=== PATIENT | female | born 1950 | race Caucasian/White ===

== ENCOUNTER 2017-07-03 10:31 | Outpatient (CLI) | payer OTHER ==
[~2017-07-03 10:31] MED LIST: LAMICTAL200 M1; TRICOR145 MG
== END 2017-07-03 10:36 | disposition home or self-care (01) ==
LOC: NUCLEAR 10:31
DX: R59.0 Localized enlarged lymph nodes (principal)
CPT/HCPCS: 78815; A9552

== ENCOUNTER 2017-12-03 07:35 | Outpatient (CLI) | payer OTHER ==
[~2017-12-03 07:35] MED LIST changes: +CRESTOR20 MG; +DICLOFENAC SODI50 MG PO; +NORFLEX100MG PO
== END 2017-12-03 07:40 | disposition home or self-care (01) ==
LOC: MRI 07:35
DX: M25.561 Pain in right knee (principal)
CPT/HCPCS: 73721

== ENCOUNTER → 2018-01-13 | Outpatient (CLI) | payer OTHER | END | disposition home or self-care (01) | LOC: EKG 10:11 | DX: D68.8 Other specified coagulation defects (principal); E78.2 Mixed hyperlipidemia; N39.0 Urinary tract infection, site not specified; R07.89 Other chest pain; I10 Essential (primary) hypertension; Z01.818 Encounter for other preprocedural examination ==

== ENCOUNTER 2018-07-14 08:44 | Outpatient (CLI) | payer OTHER | END 2018-07-14 08:50 | disposition home or self-care (01) | LOC: RAD 08:44 | DX: R07.89 Other chest pain (principal) ==

== ENCOUNTER 2018-07-14 09:31 | Outpatient (CLI) | payer OTHER | END 2018-07-14 10:13 | disposition home or self-care (01) | LOC: EKG 09:31 | DX: I10 Essential (primary) hypertension (principal) ==

== ENCOUNTER 2018-08-17 09:51 | Outpatient (CLI) | payer OTHER | END 2018-08-17 09:58 | disposition home or self-care (01) | LOC: TOM 09:51 | DX: R91.1 Solitary pulmonary nodule (principal) ==

== ENCOUNTER → 2020-01-27 08:08 | Outpatient (CLI) | payer OTHER | END | disposition home or self-care (01) | LOC: LAB 08:08 | PROVIDERS: ATTEND Internal Medicine Geriatric Medicine | DX: D50.8 Other iron deficiency anemias (principal); E03.8 Other specified hypothyroidism; E78.2 Mixed hyperlipidemia; I11.9 Hypertensive heart disease without heart failure; E56.8 Deficiency of other vitamins; N39.0 Urinary tract infection, site not specified; Z12.11 Encounter for screening for malignant neoplasm of colon; E55.9 Vitamin D deficiency, unspecified; N19 Unspecified kidney failure; E11.9 Type 2 diabetes mellitus without complications; R80.8 Other proteinuria; C18.0 Malignant neoplasm of cecum; K92.1 Melena; R06.02 Shortness of breath ==

== ENCOUNTER 2023-10-30 16:33 | Emergency (ER) | payer OTHER ==
[~2023-10-30] VITALS: Ht 162.6 cm; Wt 69.9 kg
[2023-10-30] MEDS ORDERED: OFEV150 MG PO (18:40)
[2023-10-30] MEDS ORDERED: LOSARTAN POTASS50 MG PO (18:41)
[2023-10-30] MEDS ORDERED: FAMOTIDINE/PF 20 MG/2 ML VIAL IV ONE (21:30)
[2023-10-30] MEDS ORDERED: LACTOBACILLUS ACIDOPHILUS 1 CAP CAP PO ONE (21:30)
[2023-10-30] MEDS ORDERED: ACETAMINOPHEN 500 MG GEL..CAP PO ONE (21:30)
[2023-10-30] MEDS ORDERED: 0.9 % SODIUM CHLORIDE 500 ML IV ONE (21:30)
[2023-10-30 21:42] LABS: HEMATOCRIT 41.2 % (36.0-45.00); MEAN CELL VOLUME 89.1 fL (80.00-100.00); MEAN CORPUSCULAR HEMOGLOBIN 30.3 pg (27.00-32.0); PLATELET COUNT 283 K/uL (150-450); RED BLOOD COUNT 4.62 M/uL (4.00-6.00); RED CELL DISTRIBUTION WIDTH 14.8 % (11.5-14.5)
[2023-10-30 22:06] LABS: ALBUMIN 4.1 gm/dL (3.4-5.0); BILIRUBIN TOTAL 0.33 mg/dL (0.3-1.2); CALCIUM 10.1 mg/dL (8.5-10.1); CREATININE SERUM 1.05 mg/dL (0.55-1.02); GFR 51.23; GLOBULINA 4.4 G/DL (2.4-3.5); POTASSIUM 4.52 mEq/L (3.5-5.1); TOTAL PROTEIN 8.5 gm/dL (6.4-8.2)
[2023-10-31 01:35] LABS: URINE EPITHELIAL CELLS 23.8 uL (0.0-38.8); URINE RBC 100.9 uL (0.0-20.8)
[2023-10-31 02:09] LABS: URINE BACTERIA 1.2 uL (0.0-1933); URINE WBC 0.9 uL (0.0-23.2)
[2023-10-31 02:10] LABS: URINE CRYSTALS MANY /HPF
[2023-10-31 02:12] LABS: URINE APPEARANCE TURBID; URINE BILIRRUBIN NEGATIVE (NEGATIVE); URINE BLOOD NEGATIVE; URINE COLOR RED; URINE GLUCOSE 250 MG/DL (NEGATIVE)
[2023-10-31 02:13] LABS: URINE LEUKOCYTE NEGATIVE; URINE NITRATE POSITIVE; URINE PROTEIN 100 (NEGATIVE); URINE UROBILINOGEN > 8.0 E.U./dl
[2023-10-31] MEDS ORDERED: CEFAZOLIN SODIUM 1,000 MG VIAL IM STA (04:06)
== END 2023-10-31 04:26 | disposition home or self-care (01) ==
LOC: ER 16:34
PROVIDERS: Nurse Practitioner Family
DX: N30.90 Cystitis, unspecified without hematuria (principal); R10.9 Unspecified abdominal pain; R10.2 Pelvic and perineal pain; I10 Essential (primary) hypertension
CPT/HCPCS: 36415; 74177; 96365; 96366; 99284; J0690; J3490; J7042; Q9965

== ENCOUNTER 2024-11-13 01:15 | Emergency (ER) | payer OTHER ==
[~2024-11-13] VITALS: Ht 162.6 cm; Wt 77.1 kg
[~2024-11-13 01:15] MED LIST changes: +LOSARTAN POTASS50 MG PO; +OFEV150 MG PO
[2024-11-13] MEDS ORDERED: LEVETIRACETAM500 MG PO (01:40)
[2024-11-13] MEDS ORDERED: ACETAMINOPHEN 500 MG GEL..CAP PO STA (04:13)
[2024-11-13] MEDS ORDERED: KETOROLAC TROMETHAMINE 60 MG VIAL IM STA (04:13)
[2024-11-13] MEDS ORDERED: KETOROLAC TROMETHAMINE 60 MG VIAL IM ONE (04:16)
[2024-11-13] MEDS ORDERED: ACETAMINOPHEN 500 MG GEL..CAP PO ONE (04:16)
== END 2024-11-13 06:35 | disposition home or self-care (01) ==
LOC: ER 01:15
DX: S00.93XA Contusion of unspecified part of head, initial encounter (principal); S40.012A Contusion of left shoulder, initial encounter; S50.12XA Contusion of left forearm, initial encounter; S20.222A Contusion of left back wall of thorax, initial encounter; W10.8XXA Fall (on) (from) other stairs and steps, initial encounter; Y93.89 Activity, other specified; Y92.018 Other place in single-family (private) house as the place of occurrence of the external cause; Y99.9 Unspecified external cause status